=== PATIENT | female | born 1960 | race Hispanic/Latino ===

== ENCOUNTER 2018-01-12 06:49 | Inpatient (IN) | payer BC ==
[2018-01-10 12:59] LABS: EOSINOPHILS % (AUTO) 2.4 % (0.0-8.0); HEMATOCRIT 40.3 % (36-48); LYMPHOCYTES % (AUTO) 33.3 % (21.0-51.0); MEAN CORPUSCULAR HEMOGLOBIN 30.2 pg (27.0-33.0); MEAN CORPUSCULAR HGB CONC 34.6 g/dL (32.0-36.0); MEAN CORPUSCULAR VOLUME 87.4 fL (79-99); MONOCYTES % (AUTO) 6.7 % (3.0-13.0); NEUTROPHILS % (AUTO) 56.6 % (40.0-77.0); PLATELET COUNT (AUTO) 275 K/uL (130-400); RED BLOOD CELL COUNT(AUTO) 4.61 MIL/uL (4.00-5.50); RED CELL DISTRIBUTION WIDTH 14.3 % (11.0-15.5)
[2018-01-10 12:59] LABS: APPEARANCE,URINE Clear (CLEAR); BILIRUBIN,URINE Negative (NEGATIVE); GLUCOSE, URINE (UA) Negative (NEGATIVE); KETONES,URINE Negative (NEGATIVE); LEUKOCYTE ESTERASE ,URINE Trace (NEGATIVE); NITRATE,URINE Negative (NEGATIVE); OCCULT BLOOD,URINE Negative (NEGATIVE); PROTEIN,URINE Negative (NEGATIVE); UROBILINOGEN,URINE 0.2 mg/dL (0.2-1.0)
[2018-01-10 13:01] LABS: COLOR,URINE COLORLESS (YELLOW)
[2018-01-10 13:06] VITALS: BP 119/78
[2018-01-10 13:10] LABS: BACTERIA,URINE Rare /HPF (None Seen); RBC,URINE None Seen /HPF (0-1); SQUAMOUS EPITHELIAL CELL,UR Rare /HPF (0-2); WBC,URINE 0-1 /HPF (0-1)
[2018-01-10 13:10] LABS: CREATININE 0.7 mg/dL (0.5-1.5); POTASSIUM 3.9 mmol/L (3.5-5.1)
[~2018-01-12] VITALS: Ht 152.4 cm; Wt 71.5 kg
[2018-01-12] VITALS (19 sets, daily range): BP systolic 119–173; BP diastolic 45–93
[~2018-01-12 06:49] MED LIST: ACET-2247 PO; ALLO300T2 PO; ASPI-555 PO; BENA20TA10 PO; CYCL5TAB PO; HYDR25TA PO; LEVO50TA11 PO; MULT-1258 PO; PRAV20TA4 PO; VITAMIN D2 PO
[2018-01-12] MEDS ORDERED: LACTATED RINGERS 1000ML 1,000 ML IV ONE (07:02)
[2018-01-12] MEDS: CEFAZOLIN SODIUM 1 GM VIAL IVP SCH ×4 (07:25→19:12)
[2018-01-12] MEDS ORDERED: BUPIVACAINE/PF 0.25% 30ML VIAL IJ ONE (08:45)
[2018-01-12] MEDS ORDERED: ONDANSETRON HCL 4 MG/2 ML VIAL ONE (09:28)
[2018-01-12] MEDS ORDERED: LIDOCAINE PF 2% 5ML ABBOJECT ONE (09:28)
[2018-01-12] MEDS ORDERED: DEXAMETHASONE SOD PHOSPHATE 10MG/ML 1ML VIAL ONE (09:28)
[2018-01-12] MEDS ORDERED: FENTANYL CITRATE PF 50 MCG/1 ML 2ML VIAL ONE ×4 (09:28→11:49)
[2018-01-12] MEDS ORDERED: GLYCOPYRROLATE 0.2 MG/ML 5 ML VIAL ONE (09:28)
[2018-01-12] MEDS ORDERED: PROPOFOL 10 MG/ML 20ML VIAL IV ONE (09:28)
[2018-01-12] MEDS ORDERED: MIDAZOLAM HCL 1 MG/ML 2ML VIAL ONE (09:28)
[2018-01-12] MEDS: LACTATED RINGERS 1000ML 1,000 ML IV SCH (12:08)
[2018-01-12] MEDS ORDERED: MEPERIDINE-PF 25 MG/ML SYG ONE ×2 (12:15→12:36)
[2018-01-12] MEDS ORDERED: ACETAMINOPHEN-CODEINE 300/30MG TAB PO PRN (12:15)
[2018-01-12] MEDS ORDERED: MORPHINE-NS 50 MG/50 ML 50 ML IV PRN (12:15)
[2018-01-12] MEDS ORDERED: MORPHINE SULFATE 2 MG/ML 1ML SYG ONE ×2 (12:27→12:35)
[2018-01-12] MEDS ORDERED: KETOROLAC TROMETHAMINE 30MG/ML ONE (13:02)
[2018-01-12] MEDS: ONDANSETRON HCL 4 MG/2 ML VIAL IVP PRN ×2 (14:48→18:22)
[2018-01-12] MEDS ORDERED: CYCLOBENZAPRINE HCL 10 MG TABLET PO PRN (18:00)
[2018-01-12] MEDS ORDERED: CEFAZOLIN 2GM / 50 ML 50 ML IV SCH (18:00)
[2018-01-12] MEDS ORDERED: PHARMACY COMMUNICATION MISC SCH (18:30)
[2018-01-12] MEDS: ACETAMINOPHEN-CODEINE 300/30MG TAB PO PRN (19:54)
[2018-01-12] MEDS: LEVOTHYROXINE 50 MCG TABLET PO SCH (20:54)
[2018-01-12] MEDS: FAMOTIDINE/PF 20 MG/2 ML VIAL IV SCH (20:54)
[2018-01-13] VITALS (7 sets, daily range): BP systolic 106–136; BP diastolic 62–84
[2018-01-13] MEDS: ONDANSETRON HCL 4 MG/2 ML VIAL IVP PRN ×3 (00:34→08:50)
[2018-01-13] MEDS: ACETAMINOPHEN-CODEINE 300/30MG TAB PO PRN ×3 (00:34→10:50)
[2018-01-13] MEDS: CEFAZOLIN SODIUM 1 GM VIAL IVP SCH ×2 (05:28→10:49)
[2018-01-13] MEDS: FAMOTIDINE/PF 20 MG/2 ML VIAL IV SCH ×2 (08:50→21:15)
[2018-01-13] MEDS: HYDROCHLOROTHIAZIDE 25 MG TABLET PO SCH (09:00)
[2018-01-13] MEDS: Pravastatin Sodium 20 MG PO SCH (09:00)
[2018-01-13] MEDS: ALLOPURINOL 300 MG TABLET PO SCH (09:00)
[2018-01-13] MEDS: BENAZEPRIL HCL 20 MG PO SCH (09:00)
[2018-01-13] MEDS: LACTATED RINGERS 1000ML 1,000 ML IV SCH (10:53)
[2018-01-13] MEDS ORDERED: PROMETHAZINE HCL 25 MG/ML 1ML AMPULE IM PRN (11:15)
[2018-01-13] MEDS ORDERED: PROMETHAZINE HCL 25 MG/ML 1ML AMPULE IM ONE (11:59)
[2018-01-13] MEDS ORDERED: MORPHINE SULFATE 2 MG/ML 1ML SYG IVP PRN ×2 (12:45→15:15)
[2018-01-13] MEDS ORDERED: ACETAMINOPHEN-CODEINE 300/30MG TAB PO PRN ×2 (12:45)
[2018-01-13] MEDS: ASPIRIN 81 MG EC TAB PO SCH (15:08)
[2018-01-13] MEDS: LEVOTHYROXINE 50 MCG TABLET PO SCH (21:15)
[2018-01-14] MEDS ORDERED: CEFAZOLIN SODIUM 1 GM VIAL ONE ×2 (00:44→08:41)
[2018-01-14] MEDS: CEFAZOLIN 2GM / 50 ML 50 ML IV SCH ×2 (01:27→08:51)
[2018-01-14] MEDS ORDERED: MORPHINE SULFATE 4 MG/1ML SYG ONE (03:22)
[2018-01-14] MEDS: LACTATED RINGERS 1000ML 1,000 ML IV SCH (03:24)
[2018-01-14 03:41] VITALS: BP 132/78
[2018-01-14 08:00] VITALS: BP 122/71
[2018-01-14] MEDS: ACETAMINOPHEN-CODEINE 300/30MG TAB PO PRN ×2 (08:08→14:13)
[2018-01-14] MEDS: ALLOPURINOL 300 MG TABLET PO SCH (08:50)
[2018-01-14] MEDS: ASPIRIN 81 MG EC TAB PO SCH (08:50)
[2018-01-14] MEDS: ONDANSETRON HCL 4 MG/2 ML VIAL IVP PRN (08:50)
[2018-01-14] MEDS: FAMOTIDINE/PF 20 MG/2 ML VIAL IV SCH (08:50)
[2018-01-14] MEDS: HYDROCHLOROTHIAZIDE 25 MG TABLET PO SCH (08:50)
[2018-01-14] MEDS: Pravastatin Sodium 20 MG PO SCH (08:51)
[2018-01-14] MEDS: BENAZEPRIL HCL 20 MG PO SCH (08:51)
[2018-01-14 12:00] VITALS: BP 115/61
[2018-01-14] MEDS ORDERED: COMPOUND IV REFRIGERATED 1 EACH IVSOLN MISC PRN (12:00)
[2018-01-14] MEDS ORDERED: ACET1TAB12 PO (12:40)
[2018-01-14] MEDS ORDERED: ONDA4TAB7 PO (12:40)
[2018-01-14] MEDS ORDERED: METOPROLOL TARTRATE 25 MG TAB PO SCH (21:00)
[2018-01-15] MEDS ORDERED: ENOXAPARIN SODIUM 30 MG/0.3 ML SQ SCH (09:00)
[2018-01-15] MEDS ORDERED: ASPIRIN 81 MG EC TAB PO SCH (09:00)
== END 2018-01-14 17:00 | disposition home or self-care (01) | DRG 355 ==
LOC: DAH 06:49 → 3BH 06:50 → DAH 06:50 → OBSVTOIN 06:50
PROVIDERS: ADMIT Surgery; ATTEND Surgery
PROC: 0WUF0JZ Supplement Abdominal Wall with Synthetic Substitute, Open Approach (ICD-10-PCS; principal; 2018-01-12 09:28)
DX: K43.2 Incisional hernia without obstruction or gangrene (principal); I10 Essential (primary) hypertension; Z90.710 Acquired absence of both cervix and uterus; Z90.49 Acquired absence of other specified parts of digestive tract
CPT/HCPCS: 36415; 80048; 81001; 85025; A4218; A4606; J0690; J1100; J1885; J2001; J2175; J2250; J2270; J2405; J2550; J2704; J3010; J3490; J7120

== ENCOUNTER → 2019-04-19 | Outpatient (CLI) | payer OTHER ==
[~2019-04-19] MED LIST changes: +ACET1TAB12 PO; +ONDA4TAB7 PO
== END | disposition home or self-care (01) ==
LOC: SHCH 08:25
PROVIDERS: ATTEND Internal Medicine Cardiovascular Disease
DX: R00.2 Palpitations (principal); I10 Essential (primary) hypertension
CPT/HCPCS: 93306